=== PATIENT | female | born 1970 | race Caucasian/White ===

== ENCOUNTER 2021-03-07 00:58 | Outpatient (RCR) | payer BC, SELFPAY ==
[2021-02-14] MEDS: Normal Saline Flush 10 ML SYR IVP (09:52)
[2021-02-14 10:07] LABS: Abs Immature Grans 0.02 10^3/uL (0.0-0.06); Absolute Basophil Count 0.07 10^3/uL (0.0-0.2); Absolute Eosinophil Count 0.08 10^3/uL (0.0-0.7); Absolute Lymphocyte Count 1.97 10^3/uL (1.2-3.4); Absolute Monocyte Count 0.52 10^3/uL (0.1-0.8); Absolute Neutrophil Count 3.46 10^3/uL (1.2-6.7); Basophils % 1.1; Eosinophils % 1.3; HCT 36.6 % (36.0-46.0); HGB 12.7 g/dL (11.2-15.7); Immature Grans % 0.3; Lymphocytes % 32.2; MCH 31.1 pg (27.0-33.0); MCHC 34.7 % (32.0-36.0); MCV 89.5 fL (80-95); MPV 9.3 fL (8.0-11.0); Monocytes % 8.5; Neutrophils % 56.6; Nucleated RBC 0 %; Platelet Count 243 10^3/uL (130-400); RBC 4.09 10^6/uL (3.93-5.22); RDW 13.7 % (11.7-14.6); RDW-SD 40.6 fL; WBC 6.12 10^3/uL (4.4-10.8)
[2021-02-14 10:31] LABS: ALT 28 U/L (14-59); AST 21 U/L (15-37); Alkaline Phosphatase 107 U/L (46-116); Anion Gap 6.4 mmol/L (3-11); BUN 8 mg/dL (7-18); Bilirubin, Total 0.5 mg/dL (0.2-1.0); CO2 30.6 mmol/L (21.0-32.0); CREATININE 0.8 mg/dL (0.55-1.02); Calcium 9.4 mg/dL (8.5-10.1); Chloride 106 mmol/L (98-107); Glucose 86 mg/dL (74-106); Potassium 3.5 mmol/L (3.5-5.1); Sodium 143 mmol/L (136-145); Total Protein 7.4 g/dL (6.4-8.2)
[2021-03-07 09:12] LABS: Abs Immature Grans 0.01 10^3/uL (0.0-0.06); Absolute Basophil Count 0.03 10^3/uL (0.0-0.2); Absolute Eosinophil Count 0.08 10^3/uL (0.0-0.7); Absolute Lymphocyte Count 1.61 10^3/uL (1.2-3.4); Absolute Monocyte Count 0.48 10^3/uL (0.1-0.8); Absolute Neutrophil Count 2.36 10^3/uL (1.2-6.7); Basophils % 0.7; Eosinophils % 1.8; HGB 13.1 g/dL (11.2-15.7); Immature Grans % 0.2; Lymphocytes % 35.2; MCH 31.5 pg (27.0-33.0); MCHC 34.5 % (32.0-36.0); MCV 91.3 fL (80-95); MPV 9.1 fL (8.0-11.0); Monocytes % 10.5; Neutrophils % 51.6; Nucleated RBC 0 %; Platelet Count 215 10^3/uL (130-400); RBC 4.16 10^6/uL (3.93-5.22); RDW-SD 53.5 fL; WBC 4.57 10^3/uL (4.4-10.8)
[2021-03-07 09:32] LABS: ALT 25 U/L (14-59); AST 19 U/L (15-37); Alkaline Phosphatase 104 U/L (46-116); Anion Gap 8.7 mmol/L (3-11); BUN 10 mg/dL (7-18); Bilirubin, Total 0.5 mg/dL (0.2-1.0); CO2 29.3 mmol/L (21.0-32.0); CREATININE 0.8 mg/dL (0.55-1.02); Chloride 107 mmol/L (98-107); Glucose 72 mg/dL (74-106); Potassium 3.7 mmol/L (3.5-5.1); Sodium 145 mmol/L (136-145); Total Protein 7.3 g/dL (6.4-8.2)
== END 2021-03-09 23:59 | disposition home or self-care (01) ==
LOC: INF 00:58
PROVIDERS: PCP Family Medicine; Visit Provider Internal Medicine Hematology & Oncology
DX: C18.7 Malignant neoplasm of sigmoid colon (principal)
CPT/HCPCS: 36415; 80053; 85025

== ENCOUNTER 2021-03-28 03:45 | Outpatient (CLI) | payer BC, SELFPAY ==
[2021-03-28 10:10] LABS: Abs Immature Grans 0.01 10^3/uL (0.0-0.06); Absolute Basophil Count 0.05 10^3/uL (0.0-0.2); Absolute Eosinophil Count 0.03 10^3/uL (0.0-0.7); Absolute Lymphocyte Count 1.99 10^3/uL (1.2-3.4); Absolute Monocyte Count 0.64 10^3/uL (0.1-0.8); Absolute Neutrophil Count 4.37 10^3/uL (1.2-6.7); Basophils % 0.7; Eosinophils % 0.4; HCT 35.1 % (36.0-46.0); HGB 12.2 g/dL (11.2-15.7); Immature Grans % 0.1; Lymphocytes % 28.1; MCH 32.7 pg (27.0-33.0); MCHC 34.8 % (32.0-36.0); MCV 94.1 fL (80-95); Neutrophils % 61.7; Nucleated RBC 0 %; Platelet Count 206 10^3/uL (130-400); RBC 3.73 10^6/uL (3.93-5.22); RDW 19.9 % (11.7-14.6); RDW-SD 66.7 fL; WBC 7.09 10^3/uL (4.4-10.8)
[2021-03-28 11:38] LABS: ALT 20 U/L (14-59); AST 20 U/L (15-37); Albumin 3.7 g/dL (3.4-5.0); Alkaline Phosphatase 92 U/L (46-116); Anion Gap 9.8 mmol/L (3-11); BUN 9 mg/dL (7-18); Bilirubin, Total 0.5 mg/dL (0.2-1.0); CO2 28.2 mmol/L (21.0-32.0); CREATININE 0.8 mg/dL (0.55-1.02); Chloride 106 mmol/L (98-107); Glucose 114 mg/dL (74-106); Potassium 3.5 mmol/L (3.5-5.1); Sodium 144 mmol/L (136-145); Total Protein 6.9 g/dL (6.4-8.2)
== END 2021-03-28 03:46 | disposition home or self-care (01) ==
LOC: LBO 03:45
PROVIDERS: PCP Family Medicine; Visit Provider Internal Medicine Hematology & Oncology
DX: C18.7 Malignant neoplasm of sigmoid colon (principal)
CPT/HCPCS: 36415; 80053; 85025

== ENCOUNTER 2021-04-18 08:37 | Outpatient (CLI) | payer BC, SELFPAY ==
[2021-04-18 08:35] LABS: Abs Immature Grans 0.01 10^3/uL (0.0-0.06); Absolute Basophil Count 0.06 10^3/uL (0.0-0.2); Absolute Eosinophil Count 0.04 10^3/uL (0.0-0.7); Absolute Lymphocyte Count 1.96 10^3/uL (1.2-3.4); Absolute Monocyte Count 0.65 10^3/uL (0.1-0.8); Absolute Neutrophil Count 2.89 10^3/uL (1.2-6.7); Basophils % 1.1; Eosinophils % 0.7; HGB 12.4 g/dL (11.2-15.7); Immature Grans % 0.2; Lymphocytes % 34.9; MCH 33.9 pg (27.0-33.0); MCHC 34.4 % (32.0-36.0); MCV 98.4 fL (80-95); MPV 9.4 fL (8.0-11.0); Monocytes % 11.6; Neutrophils % 51.5; Nucleated RBC 0 %; Platelet Count 221 10^3/uL (130-400); RBC 3.66 10^6/uL (3.93-5.22); RDW 19.9 % (11.7-14.6); RDW-SD 71.7 fL; WBC 5.61 10^3/uL (4.4-10.8)
[2021-04-18 08:50] LABS: ALT 19 U/L (14-59); AST 20 U/L (15-37); Albumin 3.7 g/dL (3.4-5.0); Alkaline Phosphatase 91 U/L (46-116); Anion Gap 10.2 mmol/L (3-11); BUN 6 mg/dL (7-18); Bilirubin, Total 0.4 mg/dL (0.2-1.0); CO2 25.8 mmol/L (21.0-32.0); CREATININE 0.8 mg/dL (0.55-1.02); Calcium 8.8 mg/dL (8.5-10.1); Chloride 106 mmol/L (98-107); Glucose 110 mg/dL (74-106); Potassium 3.9 mmol/L (3.5-5.1); Sodium 142 mmol/L (136-145); Total Protein 7.3 g/dL (6.4-8.2)
== END 2021-04-18 08:38 | disposition home or self-care (01) ==
LOC: LBO 08:42
PROVIDERS: PCP Family Medicine; Visit Provider Internal Medicine Hematology & Oncology
DX: C18.7 Malignant neoplasm of sigmoid colon (principal)
CPT/HCPCS: 36415; 80053; 85025

== ENCOUNTER 2021-05-07 02:40 | Outpatient (CLI) | payer BC, SELFPAY ==
[2021-05-07 09:33] LABS: Abs Immature Grans 0.01 10^3/uL (0.0-0.06); Absolute Basophil Count 0.05 10^3/uL (0.0-0.2); Absolute Eosinophil Count 0.03 10^3/uL (0.0-0.7); Absolute Lymphocyte Count 2.02 10^3/uL (1.2-3.4); Absolute Monocyte Count 0.67 10^3/uL (0.1-0.8); Absolute Neutrophil Count 4.33 10^3/uL (1.2-6.7); Basophils % 0.7; Eosinophils % 0.4; HCT 34.5 % (36.0-46.0); HGB 12.1 g/dL (11.2-15.7); Immature Grans % 0.1; Lymphocytes % 28.4; MCH 36.1 pg (27.0-33.0); MCHC 35.1 % (32.0-36.0); MPV 9.2 fL (8.0-11.0); Monocytes % 9.4; Nucleated RBC 0 %; Platelet Count 192 10^3/uL (130-400); RBC 3.35 10^6/uL (3.93-5.22); RDW 18.5 % (11.7-14.6); RDW-SD 70.1 fL; WBC 7.11 10^3/uL (4.4-10.8)
[2021-05-07 09:41] LABS: ALT 22 U/L (14-59); AST 25 U/L (15-37); Albumin 3.7 g/dL (3.4-5.0); Alkaline Phosphatase 97 U/L (46-116); Anion Gap 8.5 mmol/L (3-11); BUN 8 mg/dL (7-18); Bilirubin, Total 0.7 mg/dL (0.2-1.0); CO2 27.5 mmol/L (21.0-32.0); CREATININE 0.8 mg/dL (0.55-1.02); Calcium 8.7 mg/dL (8.5-10.1); Chloride 106 mmol/L (98-107); Glucose 89 mg/dL (74-106); Potassium 3.5 mmol/L (3.5-5.1); Sodium 142 mmol/L (136-145); Total Protein 7.3 g/dL (6.4-8.2)
[2021-05-07 17:09] LABS: CEA 1.6 ng/mL (See Note)
== END 2021-05-07 02:41 | disposition home or self-care (01) ==
LOC: LBO 02:40
PROVIDERS: PCP Family Medicine; Visit Provider Internal Medicine Hematology & Oncology
DX: C18.7 Malignant neoplasm of sigmoid colon (principal)
CPT/HCPCS: 36415; 80053; 82378; 85025

== ENCOUNTER 2021-06-06 12:53 | Outpatient (CLI) | payer BC, SELFPAY ==
[2021-06-06 09:59] LABS: Abs Immature Grans 0.01 10^3/uL (0.0-0.06); Absolute Basophil Count 0.06 10^3/uL (0.0-0.2); Absolute Eosinophil Count 0.04 10^3/uL (0.0-0.7); Absolute Lymphocyte Count 1.83 10^3/uL (1.2-3.4); Absolute Monocyte Count 0.42 10^3/uL (0.1-0.8); Absolute Neutrophil Count 2.59 10^3/uL (1.2-6.7); Basophils % 1.2; Eosinophils % 0.8; HCT 33.9 % (36.0-46.0); HGB 11.9 g/dL (11.2-15.7); Immature Grans % 0.2; MCH 36.6 pg (27.0-33.0); MCHC 35.1 % (32.0-36.0); MCV 104.3 fL (80-95); MPV 9.1 fL (8.0-11.0); Monocytes % 8.5; Neutrophils % 52.3; Nucleated RBC 0 %; Platelet Count 203 10^3/uL (130-400); RBC 3.25 10^6/uL (3.93-5.22); RDW 13.9 % (11.7-14.6); RDW-SD 53.5 fL; WBC 4.95 10^3/uL (4.4-10.8)
[2021-06-06 10:13] LABS: ALT 20 U/L (14-59); AST 19 U/L (15-37); Albumin 3.8 g/dL (3.4-5.0); Alkaline Phosphatase 100 U/L (46-116); BUN 10 mg/dL (7-18); Bilirubin, Total 0.6 mg/dL (0.2-1.0); CREATININE 0.8 mg/dL (0.55-1.02); Calcium 8.7 mg/dL (8.5-10.1); Chloride 105 mmol/L (98-107); Glucose 81 mg/dL (74-106); Potassium 3.6 mmol/L (3.5-5.1); Sodium 141 mmol/L (136-145); Total Protein 7.4 g/dL (6.4-8.2)
[2021-06-06 18:57] LABS: CEA 0.9 ng/mL (See Note)
== END 2021-06-06 12:54 | disposition home or self-care (01) ==
LOC: LBO 12:55
PROVIDERS: PCP Family Medicine; Visit Provider Internal Medicine Hematology & Oncology
DX: C18.7 Malignant neoplasm of sigmoid colon (principal)
CPT/HCPCS: 36415; 80053; 82378; 85025

== ENCOUNTER 2021-06-27 03:43 | Outpatient (CLI) | payer BC, SELFPAY ==
[2021-06-27 09:24] LABS: Abs Immature Grans 0.01 10^3/uL (0.0-0.06); Absolute Basophil Count 0.06 10^3/uL (0.0-0.2); Absolute Eosinophil Count 0.11 10^3/uL (0.0-0.7); Absolute Lymphocyte Count 1.75 10^3/uL (1.2-3.4); Absolute Neutrophil Count 2.85 10^3/uL (1.2-6.7); Basophils % 1.2; Eosinophils % 2.2; HCT 36.6 % (36.0-46.0); HGB 12.7 g/dL (11.2-15.7); Immature Grans % 0.2; Lymphocytes % 34.4; MCH 36.2 pg (27.0-33.0); MCHC 34.7 % (32.0-36.0); MCV 104.3 fL (80-95); MPV 9.2 fL (8.0-11.0); Monocytes % 5.9; Neutrophils % 56.1; Nucleated RBC 0 %; Platelet Count 230 10^3/uL (130-400); RBC 3.51 10^6/uL (3.93-5.22); RDW 13.8 % (11.7-14.6); RDW-SD 53.1 fL; WBC 5.08 10^3/uL (4.4-10.8)
[2021-06-27 09:28] LABS: ALT 17 U/L (14-59); AST 19 U/L (15-37); Albumin 3.6 g/dL (3.4-5.0); Alkaline Phosphatase 84 U/L (46-116); Anion Gap 9.6 mmol/L (3-11); BUN 10 mg/dL (7-18); Bilirubin, Total 0.4 mg/dL (0.2-1.0); CO2 25.4 mmol/L (21.0-32.0); CREATININE 0.9 mg/dL (0.55-1.02); Calcium 8.5 mg/dL (8.5-10.1); Chloride 108 mmol/L (98-107); Glucose 88 mg/dL (74-106); Potassium 3.8 mmol/L (3.5-5.1); Sodium 143 mmol/L (136-145)
== END 2021-06-27 03:44 | disposition home or self-care (01) ==
LOC: LBO 03:43
PROVIDERS: PCP Family Medicine; Visit Provider Internal Medicine Hematology & Oncology
DX: C18.7 Malignant neoplasm of sigmoid colon (principal)
CPT/HCPCS: 36415; 80053; 85025

== ENCOUNTER 2024-06-06 08:08 | Day surgery (SDC) | payer OTHER, SELFPAY ==
--- NOTE | 2024-06-05 23:37 | PDOC.DSDIS_ITS ---
Date of service: 06/06/24 Discharge Plan Disposition Patient Disposition: Home Condition: Good Discharge Details Reason For Visit: colon cacer re-evalution. Attending Provider: Valdo Singh Primary Care Provider: Fred Merida Home Meds and New Rx's Prescriptions: No Action bisacodyl [Dulcolax (bisacodyl)] 5 mg tablet,delayed release (DR/EC) 5 mg PO ONCE Qty: 4 0RF Rx Instructions: Take per colonoscopy instructions provided by ordering providers office polyethylene glycol 3350 17 gram/dose powder 17 g PO ONCE Qty: 238 0RF Rx Instructions: Take per colonoscopy instructions provided by ordering providers office Discharge Instructions Additional Instructions: DSU Colonoscopy Post- Op Instructions Instructions for Everyone who is given Anesthesia: For your safety, please do the following for the next twenty-four (24) hours: *Do Not operate a motor vehicle (car, truck, motorcycle, etc.) *Do Not drink alcoholic beverages or use any recreational drugs for the first 24 hours or while taking pain medications. The medications in your body may have a reaction that can be dangerous. *Do Not make any important decisions or sign any important papers. Findings: Follow up: 1. No lifting over 20 pounds or strenuous activity for the first 24 hours after your procedure. After 24 hours there are no restrictions on your activity but you may feel fatigued for a few days. 2. After you arrive home you may have a light meal and return to your normal diet as you can tolerate it without feeling sick to your stomach. 3. You may have a bloated, gaseous feeling in your belly (abdomen) after a colonoscopy. Passing gas and belching will help. Walking or lying down on your left side with your knees flexed may relieve the discomfort. Call the office at [phone] (Office) or [phone] (Hospital) right away if you notice any of the following: a.Vomiting of blood or ?coffee ground stools?. b.Rectal bleeding 1Tbsp, blood clots or continuous bleeding. c.Severe belly (abdominal) pain. d.A hard distended belly (abdomen) and an inability to pass gas. 4. Please don?t expect to have a normal BM (bowel movement) for 2-3 days after your procedure. 5. If there are questions regarding the findings of your procedure, please contact your doctor 6. If you are unable to contact your doctor with a problem, contact the hospital at [phone]. 7. Continue all your regular medications unless directed otherwise. I understand the above instructions and have no questions. 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 The patient has been able to pass gas.? They are not having abdominal pain.? They have been able to tolerate liquids and a snack.? They do not have any nausea or vomiting.? They are not having any chest pain or shortness of breath.??? They are not having any rectal bleeding. Their vital signs have been stable-see nursing notes. We discussed findings during their colonoscopy, and any biopsies that were done/polyps that were removed. The patient will be sent a letter with any biopsy results, and when to repeat the colonoscopy.-see discharge instructions. Patient was given explicit instructions to follow-up regarding colonoscopy-refer to discharge instructions.? We reviewed resumption of medications. Patient verbalized understanding and discharged in stable and satisfactory condition- See nursing notes.
--- NOTE | 2024-06-05 23:40 | COLE_ITS ---
Date of service: 06/06/24
--- NOTE | 2024-06-05 23:40 | W.COLOREPORT ---
Date of service: 06/06/24
[2024-06-06 08:10] VITALS: BP 150/99; PULSE 85; RESP 16; TEMP 36.5; O2SAT 99
[2024-06-06] MEDS: Lactated Ringers 1,000 ML 80 ML IV (08:40)
--- NOTE | 2024-06-06 10:20 | ANES.PREOP_ITS ---
General Info Date of Service Date Performed: 06/06/24 Height: 5 ft 4 in Weight: 80 kg Body Mass Index (BMI): 30.2 Surgical Procedure: Operation Date: 06/06/24 10:05 Proposed Procedure Side Surgeon p Zachary Singh MD Meds Allergies and Home Medications Allergies Allergy/AdvReac Type Severity Reaction Status Date / Time No Known Allergies Allergy Verified 06/06/24 08:19 Home Medication ?Medication ?Instructions ?Recorded bisacodyl 5 mg tablet,delayed 5 mg PO ONCE #4 tabs 05/25/24 release (Dulcolax (bisacodyl)) polyethylene glycol 3350 17 17 g PO ONCE #238 grams 05/25/24 gram/dose oral powder Current Visit Medications: Current Medications Generic Name Dose Route Start Last Admin Trade Name Freq PRN Reason Stop Dose Admin Hyoscyamine Sulfate 0.125 mg 06/06/24 11:35 Hyoscyamine 0.125 Mg Sl/Oral/Chew SL 07/06/24 11:34 DIRECTED PRN Ringer's Solution 1,000 mls @ 80 mls/hr 06/06/24 08:00 06/06/24 08:40 IV 07/06/24 07:59 80 mls/hr INFUSION SUNG Administration IV Miscellaneous Supplies 1 each 06/06/24 06:00 Iv Access IV 06/06/24 23:59 DIRECTED SUNG Ondansetron HCl 4 mg 06/06/24 23:35 Ondansetron 4 Mg/2 Ml Vial IVP 07/06/24 23:34 Q4H PRN PRN Nausea / Vomiting Sodium Chloride 0 ml 06/06/24 06:00 Normal Saline Flush 10 Ml Syr IV 06/06/24 23:59 PRN PRN Sodium Chloride 0 ml 06/06/24 06:00 Normal Saline 10 Ml Vial IJ 06/06/24 23:59 DIRECTED PRN Sterile Water 0 ml 06/06/24 06:00 Water,Injection,Sterile 10 Ml Vial IJ 06/06/24 23:59 DIRECTED PRN PFSH Medical History Medical History Fibroid uterus 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 Colon cancer Resection at [facility] per PCP referral Surgical History Surgical History History of colon resection Tobacco Smoking/Tobacco Use Status: Never Alcohol Alcohol Intake: current Alcohol intake frequency: holidays/special occasions only Substance Use Substance use: Never Substance use type: does not use Vital Signs and Lab Results Vital Signs Most Recent Vital Signs in EMR: Most Recent Vital Signs Temp Pulse Resp BP Pulse Ox 36.5 C 85 16 150/99 H 99 06/06/24 08:10 06/06/24 08:10 06/06/24 08:10 06/06/24 08:10 06/06/24 08:10 Point of Care Results Point of Care Results: POC- Test(urine) Negative 06/06/24 08:15 Lab Results Blood Type / Crossmatch: No Data to Display Complete Blood Count: No Data to Display Complete Metabolic Panel: No Data to Display Liver Function Panel: No Data to Display Coagulation Panel: No Data to Display Cardiac Panel: No Data to Display Arterial Blood Gas: No Data to Display Venous Blood Gas: No Data to Display Pancreas Panel: No Data to Display Thyroid Panel: No Data to Display Infectious Disease: No Data to Display Blood Cultures: No Data to Display Toxicology Panel: No Data to Display Panel: No Data to Display Anesthesia Assessment and Plan Anesthesia History Personal History: No History of Anesthesia Complications Family History: No Family History of Anesthesia Complications Exercise Tolerance Exercise Tolerance: Metabolic Equivalents>4 Cardiac & Pulmonary Exam Cardiac Exam: Normal S1/S2 Heart Sounds Pulmonary Exam: Clear Bilateral Breath Sounds Implantable Cardiac Device Does patient have a Pacemaker or an ICD?: No Airway Exam Known Difficult Airway: No Mallampati Class: 4 Mouth Opening: Narrow (< 3cm) (Significant TMJ) Thyromental Distance: Less than 3 cm Neck Range of Motion: Full ROM Neck Circumference: Normal Teeth Condition: Normal Dentition ASA Classification ASA Score: ASA 3 Emergency Case?: No NPO Status NPO Status: NPO Clears >2 hours, Solids >8 hours Status Status: Negative HCG Anesthesia Plan Resuscitation Status: Full Code Anesthesia Technique: General Anesthesia Airway Planned: Natural Airway Monitors Used: Standard Monitors
[2024-06-06 10:22] VITALS: BMI 30.2
--- NOTE | 2024-06-06 10:54 | BOWEL_PTH ---
PATIENT: Lisa Graham LOC: [facility] U#:[id number] AGE/SX: 54/F ROOM: RE06/06/[address]: Valdo Singh : 1970 BED: DIS: 06/06/2024 SPEC #: [id number] RECD: 06/06/24 12:33 STATUS: MERT REQ #: [id number] EUGENIO: 06/06/24 10:[address]: Valdo Singh DEPT: Surgical Specimen RECD BY: Lola Rogers ENTERED: 06/06/24 12:34 SP TYPE: Bowel OTHR DR: Fred Merida Tissues: 1 - BIOPSY BOWEL Procedures: GROSS AND MICRO LEVEL 4 Comments: [id number]
[2024-06-06 11:06] VITALS: BP 140/94; PULSE 74; RESP 16; TEMP 36.1; O2SAT 97
--- NOTE | 2024-06-06 11:17 | COLE_ITS ---
Date of service: 06/06/24 Time of Service: 11:17 Colonoscopy Report Procedure Description: Procedures performed: 1. Colonoscopy with cold forceps biopsies Preoperative diagnosis: Surveillance colonoscopy, colon cancer Postoperative diagnosis: Pandiverticulosis Surgeon: Katarzyna Singh MD Indication for procedure: The patient is a 54-year-old woman who had advanced colon cancer. She is 2-3 years out since her resection and therapy. She has no symptoms or concerns. She has never had a full colonoscopy. Findings: Normal terminal ileum. No polyps or concerning lesions anywhere. No inflammation. She has diverticular changes throughout the entire colon but most ly in the left colon. Her colorectal anastomosis was easily identified. No evidence of cancerous regrowth anywhere but there is an unusual 2-3 mm growth seemingly right at the scar of the anastomosis. It is very dark, almost like a tattoo. I wonder about it being surgical material such as a silk suture. I biopsied a piece of it just to be sure. I doubt it represents anything that has to do with malignancy. No significant hemorrhoid disease. Surveillance interval/follow-up: Assuming the biopsy results are benign/negative then I recommend repeating a full colonoscopy in 3 years. Specimens: yes Estimated blood loss: Minimal Complications: None Quality of prep: Excellent Procedure in detail: The patient gave written consent and was in agreement with the indications, the potential risks as well as the benefits of the procedure. They were taken to the endoscopy suite and laid in the left lateral decubitus position. A timeout was performed and anesthesia was administered which was tolerated well. I started the procedure. Digital rectal and visual examination was performed and grossly within normal limits. A well-lubricated flexible colonoscope was then introduced and passed without any notable difficulty all the way to the cecum identified by the ileocecal valve and the appendiceal orifice. The terminal ileum was briefly intubated and looked normal visually. The scope was then slowly withdrawn with the above-noted findings. The patient tolerated the procedure well and was taken to the PACU in hemodynamically stable condition.
--- NOTE | 2024-06-06 11:27 | PDOC.DSDIS_ITS ---
Date of service: 06/06/24 Discharge Plan Disposition Patient Disposition: Home Condition: Good Discharge Details Reason For Visit: colon cacer re-evalution. Attending Provider: Valdo Singh Primary Care Provider: Fred Merida Home Meds and New Rx's Prescriptions: No Action bisacodyl [Dulcolax (bisacodyl)] 5 mg tablet,delayed release (DR/EC) 5 mg PO ONCE Qty: 4 0RF Rx Instructions: Take per colonoscopy instructions provided by ordering providers office polyethylene glycol 3350 17 gram/dose powder 17 g PO ONCE Qty: 238 0RF Rx Instructions: Take per colonoscopy instructions provided by ordering providers office Discharge Instructions Additional Instructions: DSU Colonoscopy Post- Op Instructions Instructions for Everyone who is given Anesthesia: For your safety, please do the following for the next twenty-four (24) hours: *Do Not operate a motor vehicle (car, truck, motorcycle, etc.) *Do Not drink alcoholic beverages or use any recreational drugs for the first 24 hours or while taking pain medications. The medications in your body may have a reaction that can be dangerous. *Do Not make any important decisions or sign any important papers. Findings: Follow up: 1. No lifting over 20 pounds or strenuous activity for the first 24 hours after your procedure. After 24 hours there are no restrictions on your activity but you may feel fatigued for a few days. 2. After you arrive home you may have a light meal and return to your normal diet as you can tolerate it without feeling sick to your stomach. 3. You may have a bloated, gaseous feeling in your belly (abdomen) after a colonoscopy. Passing gas and belching will help. Walking or lying down on your left side with your knees flexed may relieve the discomfort. Call the office at [phone] (Office) or [phone] (Hospital) right away if you notice any of the following: a.Vomiting of blood or ?coffee ground stools?. b.Rectal bleeding 1Tbsp, blood clots or continuous bleeding. c.Severe belly (abdominal) pain. d.A hard distended belly (abdomen) and an inability to pass gas. 4. Please don?t expect to have a normal BM (bowel movement) for 2-3 days after your procedure. 5. If there are questions regarding the findings of your procedure, please contact your doctor 6. If you are unable to contact your doctor with a problem, contact the hospital at [phone]. 7. Continue all your regular medications unless directed otherwise. I understand the above instructions and have no questions. 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 There is nothing of concern. Some routine biopsies were taken near the surgical site but these are expected to come back normal. We will call you in a week or 2 to confirm those results. You should do another colonoscopy in 3 years.
--- NOTE | 2024-06-06 11:31 | W.ANESPOSTOP ---
Postoperative Evaluation Date, Time and Location Date Performed: 06/06/24 Time Performed: 11:20 Patient Location: Day Surgery Unit Vital Signs Most Recent Imported Vital Signs: Most Recent Vital Signs Temp Pulse Resp BP Pulse Ox 36.1 C L 74 16 140/94 H 97 06/06/24 11:06 06/06/24 11:06 06/06/24 11:06 06/06/24 11:06 06/06/24 11:06 Pain Score Most Recent Pain Score: Most Recent Pain Score Pain Level 0 06/06/24 11:06 Assessment Mental Status: Awake (Alert & Oriented to Patient Baseline) Airway and Respiratory Function: Patent airway with normal (patient baseline) respiratory exam Cardiovascular Function: Hemodynamically Stable Hydration Status: Adequately Hydrated Nausea & Vomiting: No Nausea or Vomiting Pain: Pt. Denies Any Pain Peripheral Nerve Block: Patient did not receive a nerve block
[2024-06-06 11:43] VITALS: BP 138/90; PULSE 82; RESP 14; TEMP 36.4; O2SAT 100
== END 2024-06-06 12:04 | disposition home or self-care (01) ==
PROVIDERS: PCP Family Medicine; Visit Provider Student in an Organized Health Care Education/Training Program
PROC: 0DJD8ZZ Inspection of Lower Intestinal Tract, Via Natural or Artificial Opening Endoscopic (ICD-10-PCS; CPT 45378; principal; 2024-06-06 10:00)
DX: Z90.49 Acquired absence of other specified parts of digestive tract; Z12.11 Encounter for screening for malignant neoplasm of colon; K57.50 Diverticulosis of both small and large intestine without perforation or abscess without bleeding; Z85.038 Personal history of other malignant neoplasm of large intestine
CPT/HCPCS: 45380; 81025; 88305; J2003; J2704

== ENCOUNTER 2024-10-26 01:03 | Outpatient (CLI) | payer OTHER, SELFPAY ==
[2024-10-26 12:23] LABS: Abs Immature Grans 0.06 10^3/uL (0.0-0.06); Absolute Basophil Count 0.07 10^3/uL (0.0-0.2); Absolute Eosinophil Count 0.15 10^3/uL (0.0-0.7); Absolute Lymphocyte Count 2.68 10^3/uL (1.2-3.4); Absolute Monocyte Count 0.41 10^3/uL (0.1-0.8); Absolute Neutrophil Count 4.57 10^3/uL (1.2-6.7); Basophils % 0.9 %; Eosinophils % 1.9 %; HCT 41.3 % (36.0-46.0); HGB 14.2 g/dL (11.2-15.7); Immature Grans % 0.8 %; Lymphocytes % 33.8 %; MCH 30.4 pg (27.0-33.0); MCHC 34.4 % (32.0-36.0); MCV 88 fL (80-95); MPV 9.1 fL (8.0-11.0); Monocytes % 5.2 %; Neutrophils % 57.4 %; Platelet Count 310 10^3/uL (130-400); RBC 4.67 10^6/uL (3.93-5.22); RDW 12.7 % (11.7-14.6); RDW-SD 40.8 fL; WBC 7.94 10^3/uL (4.4-10.8)
[2024-10-26 12:54] LABS: ALT 25 U/L (14-59); AST 19 U/L (15-37); Alkaline Phosphatase 142 U/L (46-116); Anion Gap 5.9 mmol/L (3-11); BUN 13 mg/dL (7-18); Bilirubin, Total 0.4 mg/dL (0.2-1.0); CO2 30.1 mmol/L (21.0-32.0); Calcium 8.8 mg/dL (8.5-10.1); Chloride 105 mmol/L (98-107); Estimated GFR 66.95 (mL/min/1.73m2); Glucose 85 mg/dL (74-106); Sodium 141 mmol/L (136-145); Total Protein 7.8 g/dL (6.4-8.2)
[2024-10-26 23:03] LABS: CEA 0.5 ng/mL (See Note)
== END 2024-10-26 01:04 | disposition home or self-care (01) ==
PROVIDERS: PCP Family Medicine; Visit Provider Internal Medicine Hematology & Oncology
DX: C18.7 Malignant neoplasm of sigmoid colon (principal)
CPT/HCPCS: 36415; 80053; 82378; 85025

== ENCOUNTER 2024-11-01 00:22 | Outpatient (CLI) | payer OTHER, SELFPAY ==
--- NOTE | 2024-11-01 | DI.MRI_ITS ---
Exam(s) MR BRAIN WO EXAM: MR BRAIN WO CLINICAL HISTORY: OTHER AMNESIA, R41.3, PERS HX NEOPLASM LARGE INTESTINE, Z85.038 TECHNIQUE: Multiplanar multisequence MRI of the brain was performed. COMPARISON: MR MRI - BRAIN WO CONTRAST from 11/27/2014 FINDINGS: VENTRICLES AND EXTRA AXIAL SPACES: Normal in size and morphology for the patient's age. MIDLINE SHIFT: None. CEREBRAL PARENCHYMA: No focus of restricted diffusion to suggest acute infarct. No space-occupying lesion identified. Mild atrophy. No abnormal high signal lesions in the white matter. BRAINSTEM/CEREBELLUM: Normal. VISUALIZED PARANASAL SINUSES: Clear mucous retention at the floors of the maxillary sinuses. Mucosal thickening of the ethmoid sinuses. MASTOIDS:Clear. Vasculature: Normal flow void. PITUITARY GLAND: Unremarkable. ORBITS: Unremarkable. IMPRESSION: Unremarkable MRI of the brain. DATA REPOSITORY:
== END 2024-11-01 00:42 ==
LOC: DI 00:22
PROVIDERS: PCP Family Medicine; Visit Provider Physician Assistant Medical
DX: R41.3 Other amnesia (principal); Z85.038 Personal history of other malignant neoplasm of large intestine
CPT/HCPCS: 70551

== ENCOUNTER 2024-11-08 02:27 | Outpatient (CLI) | payer OTHER, SELFPAY ==
--- NOTE | 2024-11-08 | DI.CT_ITS ---
Exam(s) CT CHEST/ABD/PEL W EXAM: CT CHEST/ABD/PEL W CLINICAL HISTORY: CA OF SIGMOID COLON, C18.7,surveillance. TECHNIQUE: Imaging Protocol: Axial computed tomography images with coronal and sagittal reformatted images were created and reviewed. Computer aided detection (CAD) was utilized. CONTRAST MATERIAL: Intravenous: Omnipaque 350 Contrast volume:100 ml Oral: yes / COMPARISON: CT CT CHEST ABDOMEN PELVIS W CONTRAST (GENERIC) from 07/27/[address] CHEST/ABD/PEL W from 03/03/2024 FINDINGS: CHEST: Pulmonary parenchyma: No consolidation. No dominant measurable mass. Calcified granulomas again noted. Tracheobronchial tree: No bronchiectasis. No mucous plugging.No bronchial wall thickening. Pleura: No effusion or pneumothorax. Mediastinum: Within normal limits. Pulmonary arteries: No visible emboli. Cardiovascular: No pericardial effusion. Thoracic aorta non-dilated. Bones: Unremarkable for age. No lytic or blastic lesions.No compression fractures. Soft tissues: Unremarkable. ABDOMEN and PELVIS: Liver: Normal density. Multiple stable cysts. No suspicious mass. Gallbladder and biliary tract: No evidence of stones or wall thickening. No biliary dilatation. Pancreas: Normal density, no abnormal calcifications or inflammatory process. Spleen: Normal. Kidneys: Normal size, contour and axis. No radiodense stones. No obstructive uropathy. No suspicious masses seen. Adrenal glands: No masses seen. Aorta: Abdominal portion non-dilated. Lymph nodes: Within normal limits. Soft tissues: Unremarkable. Bladder: Nearly empty. Not well evaluated. Bowel: Rectosigmoid anastomosis is unremarkable. No obstruction or bowel wall thickening. Sigmoid diverticulosis. Peritoneal cavity: No ascites. No focal collection. No mesenteric inflammatory response. No free air. Bones: Unremarkable for age. Reproductive organs: Unremarkable for age. IMPRESSION: No evidence of metastatic disease or other acute abnormality in the chest, abdomen or pelvis. Stable appearance of rectosigmoid anastomosis. Diverticulosis of the sigmoid again noted. RADIATION DOSE DELIVERED: 853.34mGy.cm Total DLP DATA REPOSITORY: All CT scans at this facility are submitted to the National Radiology Data Registry (NRDR) Dose Index Registry (DIR) with the [employer] (A[employer]). RADIATION OPTIMIZATION: All CT scans at this facility use at least one of these dose optimization techniques: automated exposure control; mA and/or kV adjustment per patient size (includes targeted exams where dose is matched to clinical indication); or iterative reconstruction.
[2024-11-08] MEDS: Barium Sulfate 2% W/V-Berry Smoothie 450 ML BTL PO (07:45)
[2024-11-08] MEDS: Barium Sulfate 2% W/V-Creamy Vanilla Smoothie 450 ML BTL PO (07:46)
[2024-11-08 08:11] LABS: Abs Immature Grans 0.02 10^3/uL (0.0-0.06); HCT 38.5 % (36.0-46.0); HGB 13.2 g/dL (11.2-15.7); Immature Grans % 0.3 %; MCH 30.5 pg (27.0-33.0); MCHC 34.3 % (32.0-36.0); MCV 89 fL (80-95); MPV 9.6 fL (8.0-11.0); Platelet Count 264 10^3/uL (130-400); RBC 4.33 10^6/uL (3.93-5.22); RDW 13.2 % (11.7-14.6); RDW-SD 43.4 fL; WBC 7.03 10^3/uL (4.4-10.8)
[2024-11-08 08:56] LABS: Folate 5.8 ng/mL (8.6-20.0); TSH (W/Ref FT4) 0.65 uIU/mL (0.36-3.74); Vitamin B12 318 pg/mL (193-986); Vitamin D 25 Total 15 ng/mL (30-100)
[2024-11-08] MEDS: Normal Saline - Diluent 50 ML VIAL IJ (11:23)
[2024-11-08] MEDS: Omnipaque 350 MG/ML 500 ML BTL-Imaging package IJ (11:24)
[2024-11-08 19:38] LABS: HIV-1/2 Ag & Ab Screen Negative (Negative)
[2024-11-11 17:32] LABS: Patient Race White
[2024-11-12 14:14] LABS: Syphilis IgG w/Reflex Nonreactive (Nonreactive)
== END 2024-11-08 02:47 ==
LOC: DI 02:28
PROVIDERS: Psychiatry & Neurology Psychiatry; PCP Family Medicine; Visit Provider Nurse Practitioner Family
DX: C18.7 Malignant neoplasm of sigmoid colon (principal)
CPT/HCPCS: 74177; 80186; 82306; 87389; 71260; 82175; 82300; 82607; 82746; 83655; 83825; 84443; 85025; 86780